=== PATIENT | female | born 1965 | race Caucasian/White ===

== ENCOUNTER 2018-07-22 18:44 | Emergency (ER) | payer BC ==
[~2018-07-22] VITALS: Ht 157.5 cm; Wt 79.1 kg
[2018-07-22] MEDS ORDERED: DULA0.75 SQ (19:11)
[2018-07-22] MEDS ORDERED: ASPI81 PO (19:11)
[2018-07-22] MEDS ORDERED: THEO400T3 PO (19:11)
[2018-07-22 19:13] LABS: GLUCOSE,POINT OF CARE 159 MG/DL (70-110)
[2018-07-22] MEDS ORDERED: THEO300C5 PO (19:15)
[2018-07-22 19:45] VITALS: BP 145/98
[2018-07-22] MEDS ORDERED: HydrOXYzine HCL 25 MG TABLET PO ONE (20:15)
[2018-07-22] MEDS ORDERED: METHOCARBAMOL 500 MG TABLET PO ONE (20:15)
[2018-07-22] MEDS ORDERED: KETOROLAC TROMETHAMINE 60 MG/2 ML VIAL IM ONE (20:15)
[2018-07-22] MEDS ORDERED: ONDANSETRON HCL 4 MG TABLET PO ONE (20:45)
== END 2018-07-22 21:34 | disposition home or self-care (01) ==
LOC: EMS 18:49
DX: H10.13 Acute atopic conjunctivitis, bilateral (principal); M54.32 Sciatica, left side; E11.9 Type 2 diabetes mellitus without complications; J45.909 Unspecified asthma, uncomplicated; Z88.5 Allergy status to narcotic agent; Z88.2 Allergy status to sulfonamides; Z91.013 Allergy to seafood; Z79.82 Long term (current) use of aspirin
CPT/HCPCS: 82962; 96372; 99284; J1885; Q0162